=== PATIENT | male | born 1950 ===

== ENCOUNTER 2025-03-05 02:01 | Emergency (ER) | payer MEDICARE ==
[2025-03-05] MEDS ORDERED: Sodium Chloride 0.9% 10 ML Syringe FLUSH PRN (02:31)
[2025-03-05] MEDS: Alum Hydroxide/Mag Hydroxide 15 ML, Lidocaine 2% 15 ML PO ONE (02:42)
[2025-03-05 02:46] LABS: BASOPHILS ABSOLUTE AUTO 0.0 x10-3/uL (0.0-0.3); BASOPHILS PERCENT AUTO 0.3 % (0.3-3.8); EOSINOPHILS ABSOLUTE AUTO 0.0 x10-3/uL (0.0-0.6); EOSINOPHILS PERCENT AUTO 0.2 % (0.1-6.8); LYMPHOCYTES ABSOLUTE AUTO 1.3 x10-3/uL (0.5-4.5); LYMPHOCYTES PERCENT AUTO 10.8 % (15.8-45.3); MEAN PLATELET VOLUME 9.6 fL (6.7-11.0); MONOCYTES ABSOLUTE AUTO 0.8 x10-3/uL (0.0-1.2); MONOCYTES PERCENT AUTO 6.7 % (5.5-15.2); NEUTROPHILS ABSOLUTE AUTO 9.8 x10-3/uL (1.7-6.9); NEUTROPHILS PERCENT AUTO 82.0 % (40.3-71.8); PLATELET COUNT,PLT 195 x10(3)uL (117-477); RED BLOOD CELL COUNT 4.67 x10(6)uL (3.90-5.90); RED CELL DISTRIBUTION WIDTH 14.2 % (12.4-15.0); WHITE BLOOD CELL COUNT,WBC 12.0 x10-3/uL (3.2-10.1)
[2025-03-05 02:50] LABS: BLOOD UREA NITROGEN,BUN 21 mg/dL (7-18); CARBON DIOXIDE,CO2 24 mmol/L (21-32); CHLORIDE,CL 104 mmol/L (100-110); CREATININE 1.1 mg/dL (0.70-1.30); EST CRCL DRUG DOSING (CG) 50.08 mL/min; ESTIMATED GFR 71 mL/min (>60); GLUCOSE RANDOM 104 mg/dL (80-116); POTASSIUM,K 3.9 mmol/L (3.5-5.3); SODIUM,NA 140 mmol/L (135-145)
[2025-03-05 02:56] LABS: A/G RATIO 1.1; ALANINE AMINOTRANSFERASE,ALT 15 U/L (12-36); ASPARTATE AMNIOTRANSFERASE,AST 14 IU/L (5-25); BILIRUBIN TOTAL 0.9 mg/dL (0.1-1.3); PROTEIN TOTAL,TP 7.2 g/dL (6.0-8.0)
[2025-03-05 04:15] LABS: GLUCOSE,URINE NORMAL (NORMAL); OCCULT BLOOD,URINE LARGE (NEGATIVE)
[2025-03-05 04:17] LABS: APPEARANCE,URINE CLEAR (CLEAR); SQUAMOUS EPITHELIAL CELLS,UR OCCASIONAL (NS,R,O)
== END 2025-03-05 04:38 | disposition home or self-care (01) ==
LOC: FB.ED 02:01
DX: K50.00 Crohn's disease of small intestine without complications (principal); N30.91 Cystitis, unspecified with hematuria; Z79.899 Other long term (current) drug therapy
CPT/HCPCS: 74176; 80053; 81001; 83690; 85025; 86140; 87086; 87186; 96361; 96374; 99284; A9270; J2470; J7030